=== PATIENT | female | born 1970 | race Caucasian/White ===

== ENCOUNTER 2022-01-04 16:15 | Observation (INO) | payer BC ==
[~2022-01-04] VITALS: Ht 157.5 cm; Wt 65.0 kg
[~2022-01-04 16:15] MED LIST: ALLEGRA 180MG180 MG PO; KLOR-CON M2020 MEQ PO; NORCO 325 MG-51 TAB PO; PROTONIX 40MG T40 MG PO; PROZAC 20MG20 MG PO; TOPAMAX 100MG100 M1 PO
--- NOTE | 2022-01-04 16:28 | NUR ---
Pt. arrived to the floor. Pt. is A&OX3, assessment complete. Pt. reports pain to the lt. flank at an 8. Will notify for orders.
[2022-01-04] MEDS ORDERED: ZOLOFT 50MG50 MG PO (16:31)
[2022-01-04] MEDS ORDERED: TORADOL 10MG TA10 MG PO (16:31)
[2022-01-04] MEDS ORDERED: CIPRO 500MG TA500 MG PO (16:31)
[2022-01-04] MEDS ORDERED: ZOFRAN 4MG T4 MG/TAB PO (16:32)
[2022-01-04] MEDS ORDERED: IMITREX100 MG PO (16:32)
[2022-01-04] MEDS ORDERED: AMITRIPTYLINE H25 M1 PO (16:33)
[2022-01-04] MEDS ORDERED: K-DUR20 MEQ PO (16:34)
[2022-01-04] MEDS ORDERED: CARDIZEM CD 12120 MG PO (16:34)
[2022-01-04] MEDS ORDERED: TAMOXIFEN CITRA20 MG PO (16:34)
[2022-01-04] MEDS ORDERED: LIPITOR20 MG PO (16:35)
[2022-01-04] MEDS ORDERED: PRILOTC PO (16:36)
[2022-01-04 17:00] VITALS: BP 155/82; PULSE 73; TEMP 98
--- NOTE | 2022-01-04 19:22 | NUR ---
RECEIVED CHANGE OF SHIFT REPORT FROM DAY SHIFT RN.
[2022-01-04 19:57] VITALS: BP 133/83; PULSE 69; TEMP 98.2
[2022-01-04 23:41] VITALS: BP 143/67; PULSE 61; TEMP 97.8
[2022-01-05] VITALS (7 sets, daily range): BP systolic 118–141; BP diastolic 70–79; PULSE 64–69; TEMP 97.7–97.8
--- NOTE | 2022-01-05 07:14 | NUR ---
CHANGE OF SHIFT REPORT GIVEN TO DAY SHIFT RNKAYLEIGH. VOIDING WITH NO REPORTED PROBLEMS AND NO STONE OBSERVED WITH CONTINUED STRAINING OF ALL VOIDED URINE. SEE MAR FOR PAIN MEDS GIVEN, C/O NAUSEA X1 DURING SHIFT. IV FLUIDS INFUSING WITH NO PROBLEMS. CONSENT FORM SIGNED WITH NO FURTHER QUESTIONS OR CONCERNS.
--- NOTE | 2022-01-05 13:27 | NUR ---
[id number] - PATIENT DISCHARGE PACKET AND EDUCATION PROVIDED. ALL QUESTIONS ANSWERED. IV REMOVED PER PROTOCOL. PATIENT SAFELY TRANSPORTED TO ED ENTRANCE BY RN FOR DISCHARGE TO FAMILY.
--- NOTE | 2022-01-05 14:29 | NUR ---
Table Inspector rounds: Patient expected to discharge today. Patient is Scientologist. Patient's [id number] about a year ago and there is a Bible dedication for her at the [facility] tomorrow. Patient wants to be home to support during this service. Table Inspector prayed for Patient, , and the service.
== END 2022-01-05 13:28 | disposition home or self-care (01) ==
LOC: SURG 16:15
PROVIDERS: ADMIT Urology
DX: N13.2 Hydronephrosis with renal and ureteral calculous obstruction (principal); I10 Essential (primary) hypertension; K21.9 Gastro-esophageal reflux disease without esophagitis; G43.909 Migraine, unspecified, not intractable, without status migrainosus; C50.911 Malignant neoplasm of unspecified site of right female breast
CPT/HCPCS: C1769; C2617; G0378; J0690; J1100; J1170; J1885; J2270; J2405; J2704; J3010; J7030